=== PATIENT | female | born 1990 | race Caucasian/White ===

== ENCOUNTER 2020-06-02 18:41 | Outpatient (CLI) | payer MEDICAID ==
--- NOTE | 2020-06-03 09:22 | Ultrasound Report ---
PROCEDURE: Pelvic w/Transvaginal INDICATIONS: Secondary amenorrhea TECHNIQUE: Real-time scanning was performed of the pelvic organs, with image documentation. Additional endovagi nal scanning was necessary due to incomplete visualization of the adnexal and endometrial structures by transabdominal scanning. COMPARISON: None. FINDINGS: No pathologic free abdominal or pelvic fluid. Uterus: Uterus is normal in size at 4.0 x 5.4 x 8.5 cm. The endometrium measures 5 mm in combined t hickness. Ovaries: The left ovary measures 1.7 x 2.1 x 2.5 cm and contains a few physiologic/follicular cysts measuring no greater than 7 mm. There is a left paraovarian cyst with some internal echoes representing debris, measuring approximate ly 2.1 x 2.4 x 2.1 cm. The right ovary is normal and unremarkable measuring 1.9 x 2.0 x 2.8 cm. IMPRESSION: Left paraovarian cyst measuring approximately 2.4 cm. Otherwise normal pelvic ultrasound. Reviewed by: Blanco Groves MD on 06/03/2020 9:21 AM PST Approved by: Blanco Groves MD on 06/03/2020 9:21 AM PST Station ID: [id number]
== END 2020-06-02 18:42 | disposition home or self-care (01) ==
LOC: DI 18:41
PROVIDERS: ATTEND Nurse Practitioner Obstetrics & Gynecology
DX: N91.1 Secondary amenorrhea (principal); N83.202 Unspecified ovarian cyst, left side

== ENCOUNTER 2020-08-09 15:24 | Outpatient (CLI) | payer MEDICAID ==
[2020-08-10 20:37] LABS: CHLAMYDIA TRACHOMATIS DNA NEGATIVE (NEGATIVE); NEISSERIA GONORRHOEAE DNA NEGATIVE (NEGATIVE); TRICHOMONAS VAGINALIS DNA NEGATIVE (NEGATIVE)
== END 2020-08-09 23:59 | disposition home or self-care (01) ==
LOC: LAB.R 15:24
PROVIDERS: ATTEND Obstetrics & Gynecology
DX: Z11.3 Encounter for screening for infections with a predominantly sexual mode of transmission (principal)
CPT/HCPCS: 87491; 87591; 87661

== ENCOUNTER 2021-05-17 08:54 | Outpatient (CLI) | payer MEDICAID ==
[2021-05-17 09:31] LABS: BASOPHILS % (AUTO) 0.3 %; EOSINOPHILS # (AUTO) 0.1 10^3/uL (0.0-0.7); EOSINOPHILS % (AUTO) 1.5 %; HCT - HEMATOCRIT 43.4 % (37.0-47.0); HGB - HEMOGLOBIN 14.6 g/dL (12.0-16.0); LYMPHOCYTES # (AUTO) 1.6 10^3/uL (1.5-3.5); LYMPHOCYTES % (AUTO) 27.2 %; MEAN CORPUSCULAR HEMOGLOBIN 29.4 pg (27.0-31.0); MEAN CORPUSCULAR HGB CONC 33.6 g/dL (32.0-36.0); MEAN CORPUSCULAR VOLUME 87.5 fL (81.0-99.0); MONOCYTES # (AUTO) 0.3 10^3/uL (0.0-1.0); MONOCYTES % (AUTO) 4.6 %; NEUTROPHILS # (AUTO) 3.9 10^3/uL (1.5-6.6); NEUTROPHILS % (AUTO) 66.2 %; PLT - PLATELET COUNT 214 10^3/uL (130-450); RED BLOOD COUNT 4.96 10^6/uL (4.20-5.40); RED CELL DISTRIBUTION WIDTH 12.6 % (12.0-15.0); WHITE BLOOD COUNT 5.9 x10^3/uL (4.8-10.8)
[2021-05-17 10:05] LABS: THYROID STIMULATING HORMONE 0.87 uIU/mL (0.34-5.60)
[2021-05-17 10:07] LABS: FREE T3 3.5 pg/mL (2.5-3.9); FREE T4 (FREE THYROXINE) 0.81 ng/dL (0.58-1.64)
[2021-05-17 10:12] LABS: FERRITIN 65.8 ng/mL (11.0-306.8)
[2021-05-17 10:13] LABS: ALBUMIN 4.5 g/dL (3.2-5.5); ALBUMIN/GLOBULIN RATIO 1.6 (1.0-2.2); ALKALINE PHOSPHATASE 83 IU/L (42-121); ALT ALANINE AMINOTRANSFERASE 34 IU/L (10-60); AST ASPARTATE AMINOTRANSFERASE 25 IU/L (10-42); BILIRUBIN,TOTAL 0.8 mg/dL (0.2-1.0); BUN - BLOOD UREA NITROGEN 8 mg/dL (6-20); CALCIUM 9.3 mg/dL (8.5-10.3); CARBON DIOXIDE - CO2 24 mmol/L (21-32); CHLORIDE 104 mmol/L (101-111); CHOL/HDL RATIO 2.5 (<4.4); CHOLESTEROL 150 mg/dL; CREATININE 0.6 mg/dL (0.4-1.0); GFR - MDRD 117 (>89); GLUCOSE 94 mg/dL (70-100); HDL CHOLESTEROL 61 mg/dL; LDL CHOLESTEROL,CALCULATED 81 mg/dL; LDL/HDL RATIO 1.3 (<4.4); POTASSIUM 3.8 mmol/L (3.5-5.0); SODIUM 138 mmol/L (135-145); TOTAL PROTEIN 7.3 g/dL (6.7-8.2); TRIGLYCERIDES 41 mg/dL; VLDL CHOLESTEROL 8 mg/dL
[2021-05-18 06:51] LABS: PROGESTERONE 0.5 ng/mL
== END 2021-05-17 08:55 | disposition home or self-care (01) ==
LOC: LAB 08:54
PROVIDERS: ATTEND Physician Assistant Medical
DX: Z00.00 Encounter for general adult medical examination without abnormal findings (principal); E55.9 Vitamin D deficiency, unspecified; N91.1 Secondary amenorrhea
CPT/HCPCS: 36415; 80050; 80061; 82306; 82607; 82670; 82728; 83721; 84144; 84439; 84481